=== PATIENT | male | born 2000 | race African-American/Black ===

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

== ENCOUNTER 2022-08-17 17:58 | Emergency (ER) | payer MEDICAID ==
[~2022-08-17] VITALS: Ht 172.7 cm; Wt 91.7 kg
[2022-08-17 18:31] VITALS: BP 130/89
[2022-08-17] MEDS ORDERED: LIDOCAINE 1% HCL (LOCAL ANESTH.) INJ 20ML MDV IJ ONE (22:00)
[2022-08-17] MEDS ORDERED: NEOMYCIN-BACITRACIN-POLYM UNITDOSE PKG TOP OINT TOP ONE (22:15)
[2022-08-17] MEDS ORDERED: IBUP800T26 PO (22:17)
== END 2022-08-17 22:24 | disposition home or self-care (01) ==
LOC: ER 17:58
DX: S61.214A Laceration without foreign body of right ring finger without damage to nail, initial encounter (principal); W23.0XXA Caught, crushed, jammed, or pinched between moving objects, initial encounter; Y93.67 Activity, basketball; Y92.89 Other specified places as the place of occurrence of the external cause; Y99.8 Other external cause status
CPT/HCPCS: 12002; 99282; J2001